=== PATIENT | male | born 1965 | race Caucasian/White ===

== ENCOUNTER 2018-07-10 11:34 | Emergency (ER) | payer OTHER ==
[2018-07-10] MEDS ORDERED: methylPREDNISolone SOD SUCC 125 MG/2 ML VIAL IVP ONE (11:48)
[2018-07-10] MEDS ORDERED: ORPHENADRINE CITRATE 60 MG/2 ML ML IV ONE (11:48)
--- NOTE | 2018-07-10 11:52 | ED Physician Documentation ---
Low Back Pain - HPI Stated Complaint: low back pain Chief Complaint: Low Back Pain/ Injury Additional Information: Patient presents with a sudden onset of low back pain after coughing earlier this morning. Patient has a history of low back pain. He denies any injury. He states he was doing fine until he coughed today. He went to the Chiropractor today, however, the Chiropractor was unable to adjust him due to muscle spasm. Patient drove to [facility]. History: back pain Onset: hours (2) Duration: continues in ED Recent Injury: No Context: other (a cough) Where: home Severity: moderate Quality: sharp, similar- prior back pain Associated Symptoms: weakness (in knees). denies: fever, constipation, incontinence, problems urinating Worsened By:: upright position - ROS CONST: no problems CVS/RESP: denies: chest pain, shortness of breath EYES/ENT: none MS/SKIN/LYMPH: none Neuro/Psych: none GI/: abdominal pain - PAST HX Past History: back pain Surgeries/Procedures: none Allergies/Adverse Reactions: Allergies Allergy/AdvReac Type Severity Reaction Status Date / Time morphine Allergy Verified 07/10/18 12:04 Home Medications: Ambulatory Orders Medication Instructions Recorded Orphenadrine Citrate [Norflex] 100 mg PO BID PRN #30 tab 07/10/18 predniSONE [Deltasone] 20 mg PO DIRECTED #18 tablet 07/10/18 - SOCIAL HX Smoking History: non-smoker Alcohol Use: none Drug Use: none - FAMILY HX Family History: none - VITAL SIGNS Vital Signs: Vital Signs Temp Pulse Resp BP Pulse Ox 83 16 140/73 99 07/10/18 11:35 07/10/18 11:35 07/10/18 11:35 07/10/18 11:35 - REVIEWED ASSESSMENTS Nursing Assessment Reviewed: Yes Vitals Reviewed: Yes Progress - Progress Progress: 1232 CT lumbar spine from 05/22/18 shows S 1/2 foraminal stenosis. No acute fracture or dislocation. 1300 Patient mother arrives to drive him home. Will give Mulberry for pain. ED Results Lab/Radiology - Orders Orders: ED Orders Category Date Time Status Place IV Lock 1T Care 07/10/18 11:48 Active HYDROcodone /APAP 10/325 [Mulberry 10/325] Med 07/10/18 13:15 Discontinued 1 each PO NOW ONE Orphenadrine Citrate [Norflex] Med 07/10/18 11:48 Discontinued 60 mg IV NOW ONE methylPREDNISolone SOD SUCC [Solu-MEDROL] Med 07/10/18 11:48 Discontinued 125 mg IVP NOW ONE Low Back Pain/Injury - Physical Exam General Appearance: no acute distress, alert EENT: JOVON Neck: non-tender, painless ROM Resp/CVS: chest non-tender, breath sounds nml, heart sounds nml Abdomen: non-tender Back: vertebral point-tendernes (L5-S1) Straight Leg Raising: Positive Right Neuro/Psych: oriented x3, motor nml, sensation nml, difficulty walking Skin: warm/dry Extremities: non-tender, no edema Discharge Clincal Impression: Acute low back pain Qualifiers: Back pain laterality: right Sciatica presence: with sciatica Sciatica laterality: sciatica of right side Qualified Code(s): M54.41 - Lumbago with sciatica, right side Prescriptions: Orphenadrine Citrate [Norflex] 100 mg PO BID PRN #30 tab PRN Reason: Spasms predniSONE [Deltasone] 20 mg PO DIRECTED #18 tablet Referrals: Mariah Mcintyre MD [Primary Care Provider] - 2 Days Additional Instructions: 1. Do not drive or operate machinery while on Norflex or Mulberry 2. Follow up with PCP within 1 week. 3. MRI may be beneficial if symptoms persist. 4. Return to ED for loss of bowel or bladder control. Condition: Stable Disposition: 01 HOME, SELF-CARE Decision to Admit: NO Date of Decison to Admit: 07/10/18 Decision Time: 13:42
[2018-07-10 12:04] VITALS: BP 140/73
[2018-07-10] MEDS ORDERED: HYDROcodone /APAP 10/325 1 EACH TABLET PO ONE (13:15)
== END 2018-07-10 14:05 | disposition home or self-care (01) ==
LOC: ED 11:34
DX: M54.41 Lumbago with sciatica, right side (principal)
CPT/HCPCS: 96374; 96375; 99283; 99284; J2360; J2930; S1016

== ENCOUNTER 2019-02-08 09:02 | Emergency (ER) | payer OTHER ==
[2019-02-08 09:13] VITALS: BP 122/82
--- NOTE | 2019-02-08 10:01 | ED Physician Documentation ---
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 This AM started to have some pain in the right lower back, right lateral chest wall in right neck. Pain is worse with movement. No numbness noted. Patient denies any rash associated with the pain. Has had his back out of place in the past and has his chiropractor put it back in place. Patiens states that he has some grabbing pain at times in the back area. Onset: hours (4) Timing: still present, persistent since Severity: moderate Modifying Factors: movement Context: sharp grabbing - ROS CONST: no problems. denies: fever, chills - PAST HX Past History: other (pneumothorax) Surgeries/Procedures: none Immunizations: referred to PCP Allergies/Adverse Reactions: Allergies Allergy/AdvReac Type Severity Reaction Status Date / Time morphine Allergy Verified 02/08/19 09:11 Home Medications: Ambulatory Orders Medication Instructions Recorded Cyclobenzaprine HCl 10 mg PO TID PRN #30 tablet 02/08/19 - SOCIAL HX Smoking History: non-smoker Alcohol Use: none Drug Use: none - FAMILY HX Family History: No - VITAL SIGNS Vital Signs: Vital Signs Temp Pulse Resp BP Pulse Ox 98.1 F 87 20 122/82 96 02/08/19 09:08 02/08/19 09:08 02/08/19 09:08 02/08/19 09:08 02/08/19 09:08 - REVIEWED ASSESSMENTS Nursing Assessment Reviewed: Yes General Adult Physical Exam - PHYSICAL EXAM GENERAL APPEARANCE: mild distress NECK: normal inspection, supple. No: lymphadenopathy, stiff neck RESPIRATORY: no resp distress, chest non-tender, breath sounds normal. No: wheezes, rales, rhonchi CVS: reg rate & rhythm, heart sounds normal, equal pulses. No: no murmur ABDOMEN: soft BACK: no CVA tenderness, other (tenderness to plapation over the lower right lumbar area, midlateral thorax area and right pericervical area. No bony abnl noted) SKIN: warm/dry EXTREMITIES: non-tender, no evidence of injury NEURO: oriented X3, CN's nml as tested, motor nml, sensation nml, mood/affect nml, cognition normal. No: asymmetric reflexes Discharge Clincal Impression: Strain of muscle and tendon of back wall of thorax, subsequent encounter Prescriptions: Cyclobenzaprine HCl 10 mg PO TID PRN #30 tablet PRN Reason: as needed for muscle spasms Referrals: Mariah Mcintyre MD [Primary Care Provider] - 2 Days Additional Instructions: Home and rest today. Return to work tomorrow if able to do so otherwise see chiropractor on Sunday. Warm/cool compress to the areas of pain. Do stretching exercises. Take cyclobenzapine as directed. Start taking Aleve 220mg tablets, 2 tablets with food twice a day. Condition: Stable Disposition: 01 HOME, SELF-CARE Decision to Admit: NO Date of Decison to Admit: 02/08/19 Decision Time: 10:04
[2019-02-08] MEDS: KETOROLAC TROMETHAMINE 60 MG/2 ML VIAL IM ONE (10:07)
== END 2019-02-08 10:22 | disposition home or self-care (01) ==
LOC: ED 09:02
DX: S29.012D Strain of muscle and tendon of back wall of thorax, subsequent encounter (principal); X58.XXXD Exposure to other specified factors, subsequent encounter; Y99.8 Other external cause status
CPT/HCPCS: 96372; 99284; J1885